=== PATIENT | female | born 1950 | race African-American/Black ===

== ENCOUNTER 2021-12-21 12:49 | Emergency (ER) | payer MEDICARE, BC, SELFPAY ==
[2021-12-21 13:14] VITALS: BP 155/56; PULSE 70; RESP 16; TEMP 36.4; O2SAT 98; BMI 29.9
--- NOTE | 2021-12-21 13:25 | CRLHL7_ITS ---
For Patients: As a result of the Century Cures Act, medical imaging exams and procedure reports are released immediately into your electronic medical record. You may view this report before your referring provider. If you have questions, please contact your health care provider. INDICATION: Right hip pain, unable to ambulate TECHNIQUE: Single view pelvis with AP and frogleg views of the right hip. COMPARISONS: None available. FINDINGS: Femoral heads are well-seated in the acetabula. There is no displaced fracture, dislocation or acute osseous abnormality. Degenerative changes of the bilateral hips are appreciated with mild axial loss of joint space and marginal osteophyte formation. There is color osteophytosis of the right hip. There is minimal ossification of the bilateral likely gluteal soft tissues. Otherwise, the soft tissues are unremarkable. IMPRESSION: Moderate to severe degenerative changes of the right hip with collar osteophyte formation without evidence of definite, displaced fracture. Recommend follow-up with CT or MRI if there is persistent concern for underlying subtle, nondisplaced impaction fracture. Dictated by Kevin Ta MD @ 12/21/2021 2:14:55 PM (Electronically Signed)
--- NOTE | 2021-12-21 13:29 | ED_ITS ---
HPI - General Adult General Chief complaint: Hip Injury/Pain Stated complaint: poss broken right hip Time Seen by Provider: 12/21/21 13:13 History of Present Illness HPI narrative: This 71-year-old female comes in reporting severe right hip pain such that she is barely able to ambulate. She states that the pain began a couple days ago. This morning she felt a pop in her right hip and has had much more pain with any kind of movement since then. She states that she has a history of degenerative disease and had some pain in her left hip your so ago. She is not on any blood thinners. She ate lunch about an hour prior to arrival. Related Data Home Medications Medication Instructions Recorded Confirmed citalopram 10 mg tablet 10 mg PO DAILY 12/21/21 12/21/21 famotidine 20 mg tablet 20 mg PO DAILY 12/21/21 12/21/21 lisinopril 20 mg tablet 10 mg PO DAILY 12/21/21 12/21/21 omega-3 fatty acids 500 mg capsule 500 mg PO DAILY 12/21/21 12/21/21 pravastatin 20 mg tablet 20 mg PO DAILY 12/21/21 12/21/21 Allergies Allergy/AdvReac Type Severity Reaction Status Date / Time No Known Drug Allergies Allergy Verified 12/21/21 13:17 Review of Systems Status of ROS: Reports: 10 or more systems reviewed and unremarkable except as noted in History and below Narrative: Constitutional: No fevers, no weight gain or loss. Eyes: No discharge. No vision changes. HENT: No congestion, no sore throat, no ear pain. Cardiovascular: No chest pain, no palpitations. Respiratory: No shortness of breath, no wheezes, no cough. Gastrointestinal: No abdominal pain, no vomiting, no diarrhea. Genitourinary: No dysuria, no hematuria. Musculoskeletal: Pain with any movement of the right hip. Pain radiates into the right groin and down the medial proximal thigh. Skin: No rashes, no pruritis. Neurological: No dizziness, weakness, sensory change, speech change. Endo/Heme/Allergies: No bruising or bleeding. No polydipsia. Pysch: no suicidality, no anxiety, no insomnia. All other systems reviewed and are negative. Exam Narrative: Exam Narrative: Constitutional: Well-developed, well-nourished, no acute distress. HEENT: Normocephalic, atraumatic. Neck: Normal range of motion. Nontender. Supple. Heart: Regular. No murmurs. Normal rate. Intact distal pulses. Lungs: Clear to auscultation. No chest discomfort. No wheezes, rhonchi, or rales. Abdomen: Normal bowel sounds. Nontender. No rebound tenderness. Genitalia: Deferred. Back: No midline tenderness. Normal range of motion. Extremities: No obvious deformity of the right hip. Distinct pain with slight log-rolling of the hip and leg. She is unable to raise the right leg from the bed. Skin: Intact. No rash. Warm. No erythema or pallor. Neurologic: No altered sensation. No weakness. Alert and oriented. Psychiatric: No suicidality. No anxiety or depression. No insomnia. Nursing notes and vitals signs are reviewed. Const: Vital Signs, click to edit/add: Vital Signs - 24 hr 12/21/21 13:14 Temperature 97.5 F L Pulse Rate [Pulse Oximeter] 70 Respiratory Rate 16 Blood Pressure [Le ft Upper Arm] 155/56 H Pulse Oximetry 98 Oxygen Delivery Me thod Room Air Course Vital Signs Vital signs: Initial Vital Signs Temperature 97.5 F L 12/21/21 13:14 Temperature Source Temporal Artery Scan 12/21/21 13:14 Pulse Rate 70 12/21/21 13:14 Pulse Rhythm 12/21/21 13:14 Pulse Strength 3+ Normal 12/21/21 13:14 Respiratory Rate 16 12/21/21 13:14 Blood Pressure 155/56 H 12/21/21 13:14 Blood Pressure Mean 89 12/21/21 13:14 Blood Pressure Position Supine 12/21/21 13:14 Pulse Oximetry 98 12/21/21 13:14 Oxygen Delivery Method 12/21/21 13:14 Vital Signs Temperature 97.5 F L 12/21/21 13:14 Pulse Rate 70 12/21/21 13:14 Respiratory Rate 16 12/21/21 13:14 Blood Pressure 155/56 H 12/21/21 13:14 Pulse Oximetry 98 12/21/21 13:14 Oxygen Delivery Method 12/21/21 13:14 Temperature 97.5 F L 12/21/21 13:14 Pulse Rate 70 12/21/21 13:14 Respiratory Rate 16 12/21/21 13:14 Blood Pressure 155/56 H 12/21/21 13:14 Pulse Oximetry 98 12/21/21 13:14 Oxygen Delivery Method 12/21/21 13:14 Medical Decision Making MDM Narrative Medical decision making narrative: This patient comes in reporting right hip pain. She knows that she has degenerative disease. She does not report any recent fall or injury event. However her pain was more significant over the past week and especially today. X-ray images of the hip and pelvis show no sign of fracture but there is moderate to severe degenerative disease. The patient is able to sit up on her bed and can arrange for some movements. I did offer further study with CT imaging of her right hip which she declined at this time. She states that she has oxycodone at home that she uses sparingly. She declined any prescription medications at this time. I also offered a follow-up appointment with orthopedic clinic which she also declined for now. Imaging Data XR R hip: Radiologist's impression: Moderate to severe degenerative changes of the right hip with collar osteophyte formation without evidence of definite, displaced fracture. Recommend follow-up with CT or MRI if there is persistent concern for underlying subtle, nondisplaced impaction fracture. Discharge Plan Discharge Clinical Impression: Hip pain, right Patient Disposition: Home, Self-Care Condition: Unchanged Additional Instructions: Use medicines as needed and indicated. Follow up with orthopedic clinic or primary physician. Return if worsening symptoms happen. Prescriptions: No Action pravastatin 20 mg tablet 20 mg PO DAILY omega-3 fatty acids 500 mg capsule 500 mg PO DAILY citalopram 10 mg tablet 10 mg PO DAILY lisinopril 20 mg tablet 10 mg PO DAILY famotidine 20 mg tablet 20 mg PO DAILY Follow Up/Referrals: Wilson Rosales MD [Primary Care Provider] - Stand Alone Forms: Dr Sears [facility] Info Instructions
--- OUTSIDE RECORDS SUMMARY | 2021-12-21 14:14 | XMS_ITS | Clinical Summary ---
:1950 Author Organization [facility] Address [place] [address] Care Team Providers Name Role Phone Wilson Rosales MD Primary Care Provider Allergies No known active allergies Medications Medication Sig Dispensed Refills Start End Date Status Date [id number] Take 1,200 mg 0 Active oil 600-1,200 mg cap by mouth once 2 daily. diclofenac topical Apply 2 g 100 g 0 A ctive (VOLTAREN) 1 % topically to 2 gelIndications: Hip affected pain, left area(s) 4 times daily. lisinopril-hydrochlor TAKE ONE 90 Tablet 1 Active othiazide, 20-25 mg, TABLET BY 2 (PRINZIDE, MOUTH EVERY ZESTORETIC) 20-25 mg DAY per tabletIndications: Hypertension pravastatin TAKE ONE 90 Tablet 1 Active (PRAVACHOL) 40 mg TABLET BY 2 tabletIndications: MOUTH AT Hyperlipidemia, BEDTIME unspecified hyperlipidemia type citalopram (CELEXA) TAKE ONE 90 Tablet 1 Active 20 mg TABLET BY 2 tabletIndications: MOUTH EVERY Depression, DAY unspecified depression type famotidine (PEPCID) TAKE ONE 180 Tablet 1 Active 20 mg TABLET BY 2 tabletIndications: MOUTH TWICE A Gastroesophageal DAY reflux disease, unspecified whether esophagitis present citalopram (CELEXA) Take 1 Tablet 90 tablet. 3 12/08 Discontinued 20 mg (20 mg) by 1 22 tabletIndications: mouth once Depression, daily. unspecified depression type famotidine (PEPCID) Take 1 Tablet 180 tablet. 3 11/29 Discontinued 20 mg (20 mg) by 1 22 tabletIndications: mouth 2 times Gastroesophageal daily. reflux disease, unspecified whether esophagitis present lisinopril-hydrochlor Take 1 Tablet 90 tablet. 3 01/17 Discontinued othiazide, 20-25 mg, by mouth once 1 22 (PRINZIDE, daily. ZESTORETIC) 20-25 mg per tabletIndications: Hypertension pravastatin Take 1 Tablet 90 tablet. 3 12/09/19 Dis continued (PRAVACHOL) 40 mg (40 mg) by 1 tabletIndications: mouth at Hyperlipidemia, bedtime. unspecified hyperlipidemia type Active Problems Problem Noted Date Routine adult health maintenance 02/03/2019 Overview: Colonoscopy 01/2019 inflammatory polyp, repeat in 10 years Hypertension Hyperlipidemia Depression Reflux Encounters Date Type Specialty Care Team Description 12/05/2021 Refill Wilson Rosales MD Refi ll Request (Lisinopril-hyd rochlorothiazide (20-25 Mg), Pra vastatin, Citalopram, Fam otidine) from Last 3 Months Family History Medical History Relation Name Comments Arthritis Mother Heart Disease Mother Thyroid Disease Mother Hypertension Sister 1 Thyroid Disease Sister 2 Cancer-breast No Family History Cancer-ovarian No Family History Premature CHD (under age 60) No Family History Relation Name Status Comments Mother Sister 1 Sister 2 Social History Tobacco Use Types Packs/Day Years Used Date Former Smoker 2 30 Quit: 03/31/19 02 Smokeless Tobacco: Never Used Tobacco Cessation: Counseling Given: Yes Alcohol Use Standard Drinks/Week Comments Never 0 (1 standard drink = 0.6 oz pure alcoho l) Alcohol Habits Answer Date Recorded How often do you have a drink containing alcohol? Never 04/10/2019 How many drinks containing alcohol do you have on a typical Not asked day when you are drinking? How often do you have six or more drinks on one occasion? No t asked Comment: Not asked Sex Assigned at Date Recorded Not on file Obstetrics History Last Filed Vital Signs Vital Sign Reading Time Taken Comments Blood Pressure 137/73 07/24/2021 11:54 AM CDT Pulse 67 07/24/2021 11:51 AM CDT Temperature 36.7 ??C (98.1 ??F) 04/10/2019 9:06 AM [facility] Respiratory Rate 22 05/03/2019 10:27 AM [facility] Oxygen Saturation 99% 07/24/2021 11:51 AM CDT Inhaled Oxygen Concentration - - Weight 86.5 kg (190 lb 12.8 oz) 07/24/2021 11:51 AM CDT Height 164 cm (5' 4.57) 05/03/2019 10:27 AM [facility] Body Mass Index 32.18 05/03/2019 10:27 AM [facility] [facility] Plan of Treatment Health Maintenance Due Date Last Done Comments COVID-19 vaccine series (#1) 1950 Pneumococcal series for age 65+ (1 1955 - PCV) Tdap 02/26/1960 Zoster (shingles) series for age 1102/26/1968 50+ (1 of 2) Tetanus booster 1969 Medicare Wellness for age 65+ 09/23/2018 09/23/2017, 2015 Fecal testing non-DNA 03/02/2019 03/02/2018 (Completed outs clau (FIT,FOBT,iFOBT) for age 45-75 of [place]), , 11/12/2015, Additional history exists BMI (ht and wt on same day) for 05/03/2020 05/03/2019, 12/30, age 18+ 10/27/2018, Additional history exists Influenza for age 65+ 11/29/2021 Mammogram for age 45-75 12/13/2021 12/13/2020, 10/27/2018, 02/03/2017, Additional history exists Depression screening for age 12+ 07/06/2022 07/06/2021, 09/2021, 07/04/2021, Additional history exists Lipids for age 45-75 11/20/2025 11/20/2020, 10/27/2018, 11/24/2017, Additional history exists Colonoscopy through age 75 02/02/2029 02/02/2019, 9, 02/02/2019 Hepatitis C screening for age Completed 08/04/2015 18-79 DEXA/DXA scan for age 65+ Completed 08/11/2015 Results Not on filefrom Last 3 Months Insurance Payer Benefit Plan / Subscriber ID Effective Dates Phone Addre ss Type Group [facility] MR [id number] 2020-[employer] [address] [address] [place] [address] [employer] [place] [employer] [id number] 2019-[employer]en [address] [address] [place] [address] Care Teams 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
[2021-12-21 15:02] VITALS: BP 136/53; PULSE 65; RESP 18; TEMP 36.3; O2SAT 96
== END 2021-12-21 15:05 | disposition home or self-care (01) ==
PROVIDERS: Emergency Provider Emergency Medicine Emergency Medical Services; PCP Surgery
DX: M25.551 Pain in right hip (principal)
CPT/HCPCS: 73502; 99283; 99284

== ENCOUNTER 2025-02-14 11:15 | Outpatient (RCR) | payer BC, SELFPAY | END 2025-03-07 13:31 | disposition home or self-care (01) | PROVIDERS: PCP Surgery; Visit Provider Surgery | DX: R26.81 Unsteadiness on feet (principal); Z51.89 Encounter for other specified aftercare | CPT/HCPCS: 97110; 97161; 97530 ==